=== PATIENT | female | born 1990 | race Caucasian/White ===

== ENCOUNTER 2016-08-23 02:48 | Emergency (ER) | payer OTHER ==
[~2016-08-23] VITALS: Ht 152.4 cm; Wt 81.6 kg
[~2016-08-23 02:48] MED LIST: DONNATAL TABS1 TAB PO; ENTOCORT EC3 MG PO; REMICADE100 MG; ZOFRAN4 M2 PO
--- NOTE | 2016-08-23 03:04 | ED GI/GU/ABDOMINAL COMPLAINT ---
History of Present Illness General Chief Complaint: Nausea, Vomiting, Diarrhea Stated Complaint: VOMITING ABD PAIN 35 WKS Source: patient Exam Limitations: no limitations Vital Signs & Intake/Output Vital Signs & Intake/Output Vital Signs Date Time Temp Pulse Resp B/P Pulse O2 O2 Flow FiO2 Ox Delivery Rate 08/23 0307 99.7 99 18 152/69 99 Allergies Coded Allergies: No Known Allergies (12/26/15) Reconcile Medications Budesonide (Entocort EC) 3 MG ECC 3 CAP PO DAILY COLITIS Infliximab (Remicade) (Unknown Strength) VIAL (Unknown Dose) COLITIS ( Reported) Ondansetron (Zofran Odt) 4 MG TAB.RAPDIS 1 TAB SL TID PRN nausea Ondansetron HCl (Zofran) 4 MG TABLET 1 TAB PO Q6-8P PRN NAUSEA Triage Nurses Notes Reviewed? yes ? y Is pt currently ? No Onset: Gradual Duration: hour(s): Timing: recent history Quality/Severity: cramping Location: generalized abdomen Radiation: no radiation Prior Abdominal Problems: "I have chron's disease, but this feels different." Modifying Factors: Worsens With: defecating, vomiting. Associated Symptoms: diarrhea, nausea/vomiting HPI: 25 yo woman 35 weeks gestation, presents with several hours of nausea, vomiting, diarrhea. "I wasn't feeling too great all day, but then tonight I just started vomiting over and over.... I live in [place] and I vomited three times." She notes mild diarrhea. She notes no fever, chills, dysuria, vaginal bleeding or discharge. She is otherwise well. Past History Medical History Any Pertinent Medical History? 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 No Review of Systems Review of Systems Constitutional: Reports: no symptoms. EENTM: Reports: no symptoms. Respiratory: Reports: no symptoms. Cardiovascular: Reports: no symptoms. GI: Reports: no symptoms. Genitourinary: Reports: no symptoms. Musculoskeletal: Reports: no symptoms. Skin: Reports: no symptoms. Neurological/Psychological: Reports: no symptoms. Hematologic/Endocrine: Reports: no symptoms. Immunologic/Allergic: Reports: no symptoms. All Other Systems: Reviewed and Negative Physical Exam Physical Exam General Appearance: well developed/nourished, mild distress, moderate distress Head: atraumatic, normal appearance Eyes: Bilateral: normal appearance. Ears, Nose, Throat, Mouth: hearing grossly normal Neck: normal inspection, supple, full range of motion Respiratory: normal breath sounds, chest non-tender, no respiratory distress, quiet respiration, lungs clear Cardiovascular: regular rate/rhythm Gastrointestinal: normal bowel sounds, soft, non-tender, no organomegaly, gravid uterus above umbilicus Back: normal inspection Extremities: normal range of motion Neurologic/Psych: no motor/sensory deficits, awake, alert, oriented x 3 Skin: intact, normal color, warm/dry Core Measures ACS in differential dx? No Severe Sepsis Present: No Septic Shock Present: No Progress Differential Diagnosis: viral syndrome vs other. Plan of Care: Orders Procedure Date/time Status URINALYSIS 08/23 303 Active LIPASE 08/23 303 Complete HEPATIC FUNCTION PANEL 08/23 303 Complete CBC WITHOUT DIFFERENTIAL 08/23 303 Complete BASIC METABOLIC PANEL 08/23 303 Complete AMYLASE 08/23 303 Complete Laboratory Tests 08/23/16 0315: Anion Gap 16, Estimated GFR > 60, BUN/Creatinine Ratio 20.0, Glucose 115 H, Calcium 8.9, Total Bilirubin 0.4, Direct Bilirubin 0.2, AST 14, ALT 26, Alkaline Phosphatase 85, Total Protein 7.2, Albumin 3.9, Amylase 35, Lipase 90, CBC w Diff NO MAN DIFF REQ, RBC 4.10 L, MCV 81.2, MCH 27.5, RDW 13.9, MPV 8.0, Gran % 84.6 H, Lymphocytes % 6.7 L, Monocytes % 6.2, Eosinophils % 2.4, Basophils % 0.1, Absolute Granulocytes 11.5 H, Absolute Lymphocytes 0.9 L, Absolute Monocytes 0.8 H, Absolute Eosinophils 0.3, Absolute Basophils 0, PUBS MCHC 33.9 Initial ED EKG: none Departure Departure Disposition: HOME OR SELF CARE Condition: Stable Clinical Impression Primary Impression: Abdominal pain Secondary Impressions: Diarrhea, Nausea and vomiting, Referrals: TREMAGLIO MD,JERALD V. (PCP/Family) Departure Forms: Customer Survey General Discharge Information Prescriptions: Current Visit Scripts Ondansetron (Zofran Odt) 1 TAB SL TID PRN nausea #10 TAB Ref 1 Comments 08/23/16, 3:54am... pt transferred to OB floor for further evaluation. 08/23/16, 5:13am... cbc/chemistries notable for slightly elevated wbc count... pt has been discharged to OB floor... U/A pending. Comments 08/23/16, 3:54am... pt transferred to OB floor for further evaluation.
[2016-08-23 03:07] VITALS: BP 152/69
[2016-08-23 03:27] LABS: ABSOLUTE BASOPHIL COUNT 0 /CUMM (0.0-0.2); ABSOLUTE EOSINOPHIL COUNT 0.3 /CUMM (0.0-0.7); ABSOLUTE GRANULOCYTE CT 11.5 /CUMM (1.4-6.5); ABSOLUTE LYMPH COUNT 0.9 /CUMM (1.2-3.4); ABSOLUTE MONOCYTE COUNT 0.8 /CUMM (0.10-0.60); BASOPHIL % 0.1 % (0.0-2.0); EOSINOPHIL % 2.4 % (0-5); HEMATOCRIT 33.3 % (37-47); MEAN CORPUSCULAR HGB 27.5 PG (27.0-31.0); MEAN CORPUSCULAR HGB CONC 33.9 G/DL (33.0-37.0); MEAN CORPUSCULAR VOLUME 81.2 FL (81.0-99.0); PLATELET COUNT 297 /CUMM (130-400); RBC DISTRIBUTION WIDTH 13.9 % (11.5-14.5); WHITE BLOOD CELL COUNT 13.6 /CUMM (4.8-10.8)
[2016-08-23] MEDS ORDERED: ZOFRAN ODT4 M1 SL (03:29)
[2016-08-23 03:37] LABS: GRANULOCYTE % 84.6 % (42.2-75.2)
[2016-09-23] MEDS ORDERED: ALBUTEROL0.63 MG/1 INH/SOL (11:52)
[2016-09-23] MEDS ORDERED: PROAIR HFA8.5 GM INH (11:53)
== END 2016-08-23 03:54 ==
LOC: ERH 02:48
PROVIDERS: Pediatrics
DX: O21.9 Vomiting of pregnancy, unspecified (principal); O26.93 Pregnancy related conditions, unspecified, third trimester; R19.7 Diarrhea, unspecified; R11.0 Nausea; R10.9 Unspecified abdominal pain; Z3A.35 35 weeks gestation of pregnancy; D72.829 Elevated white blood cell count, unspecified
CPT/HCPCS: 96374; J2405

== ENCOUNTER 2016-09-25 05:57 | Inpatient (IN) | payer OTHER ==
--- NOTE | 2016-09-23 14:31 | History & Physical ---
General Information and HPI MD Statement: I have seen and personally examined EDIL SORIA and documented this H&P. The patient is a 25 year old female at [39] weeks and [3] days gestation who presented with a chief complaint of [ELECTIVE REPEAT ]. Source of Information: patient Exam Limitations: no limitations History of Present Illness: 25yo, ,39 3/7wks, here for elective repeat . she denies ctxs, no vaginal bleeidng or LOF, reports +FM. care started at 10 wks, uncomplicated thus far. h/o x 1 in 2013. u/s show posterior placenta this . 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 x1 2014 Past Pregnancies Past Pregnancies: Date of Delivery: 08/18/2013 Gestational Age: 38wks Weight: 9oh00ig Type of Delivery: Anesthesia: epidural Complications: none Medical History Blood Transfusion Hx: No Neurological: NONE EENT: NONE Cardiovascular: TACHYCARDIA Respiratory: asthma Gastrointestinal: Crohn's disease Hepatic: NONE Renal: NONE Musculoskeletal: NONE Psychiatric: NONE Endocrine: NONE Blood Disorders: NONE Cancer(s): NONE 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 Home Who Do You Live With? spouse, child Primary Language: Guatemalan Smoking Status: Former Smoker ETOH Use: denies use Illicit Drug Use: denies illicit drug use Review of Systems Review of Systems Constitutional: Reports: no symptoms. EENTM: Reports: no symptoms. Cardiovascular: Reports: no symptoms. Respiratory: Reports: no symptoms. GI: Reports: no symptoms. Genitourinary: Reports: see HPI. Musculoskeletal: Reports: no symptoms. Skin: Reports: no symptoms. Neurological/Psychological: Reports: no symptoms. Hematologic/Endocrine: Reports: no symptoms. Immunologic/Allergic: Reports: no symptoms. All Other Systems: Reviewed and Negative Post Menopausal: No Exam & Diagnostic Data Obstetric Exam Wgt Gained During : 24LBS Pelvimetry: adequate Dilation (cm): 1 Effacement (%): 60 Station: -3 Membranes: intact Fluid: unknown Fundal Height (cm): 38 Multiple Gestation? No Contractions: no Infant #1 - FHR Baseline: 140 Category: 1 Estimated Weight: 7lbs Presentation: vertex Patient for Induction? No Physical Exam: VSS General: NAD Abdomen: gravid,soft, nontender Ext: DCT (-) Labs Blood Type & Rh: A positive Antibody Screen: negative Hct/Hgb & Platelets #1: 11.6/35.1%,[id number] Hct/Hgb & Platelets #2: 9.9/30.3%,[id number] Rubella: immune VDRL #1: negative VDRL #2: negative HbsAg: negative HIV #1: negative HIV #2 negative 1 Hr P Group B Strep: negative Initial Ultrasound: IUP at 10wks Anatomy Ultrasound: normal Genetic Testing: normal Assessment/Plan Assessment/Plan: 25yo, , 39 3/7wks, prior c/s, for elective repeat c/s 1. admit pt, admission labs 2. R/B/A of repeat d/w pt, she understand, all questions answered, informed consent obtained, pt desires to proceed. 3. will prepare for OR As Ranked By This Provider Problem List: 1. 2. History of delivery Core Measures/Miscellaneous Venous Thromboembolism VTE Risk Factors: / VTE Contraindications: No Contraindications VTE Prophylaxis Ordered Inpt: Early Ambulation VTE Diagnosis: No Beta Trish Is Beta Trish a Home Med? No Antibiotics Is Patient on Antibiotics? No Attending MD Review Statement Attending Statement Attending MD Statement: examined this patient, discussed with family, discussed w/nursing
[~2016-09-25] VITALS: Ht 152.4 cm; Wt 83.0 kg
[~2016-09-25 05:57] MED LIST changes: +ALBUTEROL0.63 MG/1 INH/SOL; +PROAIR HFA8.5 GM INH; +ZOFRAN ODT4 M1 SL
[2016-09-25 06:23] VITALS: BP 113/73
--- NOTE | 2016-09-25 11:41 | Operative Report ---
Operative/Inv Procedure Report Surgery Date: 09/25/16 Name of Procedure: Repeat low transverse section via Pfannenstiel Pre-Operative Diagnosis: G3 para 2001 at 39 weeks 3 days intrauterine , prior section 1 Post-Operative Diagnosis: Same Estimated Blood Loss: 500ML Surgeon/Traffic And Transport Planner: FREDA PERALTA,ALYSSA Field MD Anesthesia: SPINAL IV Fluids: 1600 mL lactated Ringer's Urine Output: 100 mL clear urine at the end of procedure Complications: None Condition: Stable Operative Indication: 25-year-old G3 para 2001, 39 weeks 3 days intrauterine , prior section 1, patient chooses to have elective repeat . Operative/Procedure Note Note: The patient was taken to the operating room where spinal anesthesia was found to be adequate. She was then prepared and draped in the usual sterile fashion in the dorsosupine position with the leftward tilt. A Pfannenstiel skin incision was then made with the scalpel and carried through to the underlying layer of the fascia with the Bovie. The fascia was incised in the midline and the incision extended laterally with the Workman scissors. The inferior aspect of this fascial incision was then grasped with the Sam clamps, elevated, and underlying rectus muscle dissected off with Workman scissors. Attention was then turned to the superior aspect of this incision which, in a similar fashion, was grasped, tented up with the Sam clamps, and the rectus muscle dissected off with Workman scissors. The rectus muscle was then in the midline, and the peritoneum identified tented up and entered bluntly. The peritoneum incision was then extended superiorly and inferiorly with good visualization of the bladder. The bladder blade was then inserted and the vesicouterine peritoneum identified, grasped with the pickups and entered sharply with the Metzenbaum scissors. The incision was then extended laterally and the bladder flap created digitally. The bladder blade was then reinserted and the lower uterine segment incised in a transverse fashion with the scalpel. The uterine incision was then extended laterally. The bladder blade was removed and infant head delivered atraumatically. The nose and mouth was suctioned with the suction bulb, and the cord clamped and cut. Infant was handed off to the waiting pediatricians. Cord blood was sent . The placenta was then removed manually, the uterus exteriorized, and cleared of all clots and debris. The uterine incision was repaired with 0 Vicryl in a running locked fashion. A second layer of the same suture was used to obtain excellent hemostasis. 2 figure of 8 suture was used at right site corner of the uterine incision to achieve excellent hemostasis. The uterus returned to the abdomen. The gutters were cleared of all clots, and the peritoneum closed with 3-0 Vicryl. The rectus muscle was reapproximated with 2-0 Vicryl. The fascia was reapproximated with 0 Vicryl in a running fashion. Skin was closed with 4-0 Monocryl subcuticularly. The patient tolerated the procedure well. Sponge, lap and needle counts were correct 2. The patient was taken to the recovery room in stable condition. Findings: Live male infant in cephalic presentation, KENNETH position, time study engineer present at delivery, Apgars 8 and 9, weight 3235 g. Normal uterus, tubes, and ovaries.
[2016-09-26 17:04] LABS: ABSOLUTE BASOPHIL COUNT 0 /CUMM (0.0-0.2); ABSOLUTE EOSINOPHIL COUNT 0.3 /CUMM (0.0-0.7); ABSOLUTE GRANULOCYTE CT 6.9 /CUMM (1.4-6.5); ABSOLUTE LYMPH COUNT 1.8 /CUMM (1.2-3.4); ABSOLUTE MONOCYTE COUNT 0.8 /CUMM (0.10-0.60); BASOPHIL % 0.4 % (0.0-2.0); EOSINOPHIL % 2.7 % (0-5); GRANULOCYTE % 70.5 % (42.2-75.2); HEMATOCRIT 25.4 % (37-47); MEAN CORPUSCULAR HGB 25.6 PG (27.0-31.0); MEAN CORPUSCULAR HGB CONC 33.5 G/DL (33.0-37.0); MEAN CORPUSCULAR VOLUME 76.6 FL (81.0-99.0); MEAN PLATELET VOLUME 9.3 FL (7.4-10.4); PLATELET COUNT 263 /CUMM (130-400); RBC DISTRIBUTION WIDTH 15.7 % (11.5-14.5); RED BLOOD CELL CT 3.31 /CUMM (4.20-5.40); WHITE BLOOD CELL COUNT 9.8 /CUMM (4.8-10.8)
--- NOTE | 2016-09-27 13:10 | PN- OBGYN ---
Surgical Brief Attending Note Brief Attending Note: no complaints. doing well. +ambulating, voiding, tolerating pain and po. + nursing. minimal lochia VSSAF FF@U, inc: c/d/i Ext: no calf tenderness , 1+ pedal edema Laboratory Tests 09/26/16 1645: CBC w Diff NO MAN DIFF REQ, RBC 3.31 L, MCV 76.6 L, MCH 25.6 L, RDW 15.7 H, MPV 9.3, Gran % 70.5, Lymphocytes % 18.7 L, Monocytes % 7.7, Eosinophils % 2.7, Basophils % 0.4, Absolute Granulocytes 6.9 H, Absolute Lymphocytes 1.8, Absolute Monocytes 0.8 H, Absolute Eosinophils 0.3, Absolute Basophils 0, PUBS MCHC 33.5 Microbiology 09/25 901 URINE ROUT: Urine Culture - CAN Cancelled: DUPLICATE 09/25 739 URINE ROUT: Urine Culture - COMP a/p POD 2. Doing well. Routine postop care. Anemia noted. will replace upon discharge.Anticipate d/c in AM
[2016-09-27] MEDS ORDERED: PERCOCET 5-3251 EACH PO (13:12)
[2016-09-27] MEDS ORDERED: IBUPROFEN800 M1 PO (13:12)
[2016-09-28] MEDS ORDERED: FEROCON CAPSUL1 EACH PO (08:29)
--- NOTE | 2016-10-03 15:17 | Discharge Summary ---
Visit Information Visit Dates Admission Date: 09/25/16 Discharge Date: 09/28/16 Hospital Course Course Attending Physician: ALYSSA BARBA MD Primary Care Physician: CORNELIA PERALTA,JERALD Malik Hospital Course: 25yo, term , she was admitted fro elective repeat on 09/25/2016 , she delivered a live male infant without complications. pt tolerated procedure well. During the hospital stay, she remained in stable condition, tolerate diet, void without difficulties, flatus(+), ambulating well. afebrile, VSS. abdomen soft, nontender, uterus firm, fundus below umbilicus, incision D/C/ I. she was discharged on 09/28/2016 Complications: none Allergies: Coded Allergies: No Known Allergies (12/26/15) Significant Procedures: repeat low transverse cesearan section Disposition Summary Disposition Principal Diagnosis: 39 wks prior Additional Diagnosis: anemia Discharge Disposition: home or self care Discharge Instructions General Discharge Information Code Status: Full Code Patient's Diet: regular Patient's Activity: as tolerated Follow-Up Instructions/Appts: f/u in offcie in 2wks and 6 wks Medications at Discharge Discharge Medications: Stop taking the following medications: Albuterol Sulfate (Albuterol Sulfate) 0.63 MG/3 ML VIAL.NEB Inhale Solution 4 TIMES A DAY as needed for ASTHMA Continue taking these medications: Infliximab (Remicade) (Unknown Strength) VIAL Unknown Dose Albuterol Sulfate (Proair Hfa) 90 MCG HFA.AER.AD 2 Puff Inhale through mouth EVERY 4-6 HOURS NEEDED as needed for ASTHMA Start taking the following new medications: Ibuprofen (Ibuprofen) 800 MG TABLET 800 Milligram ORAL EVERY SIX HOURS NEEDED as needed for UTERINE CRAMPING Qty = 30 No Refills Comments: Last Taken:09/28/16 Time:0640 Oxycodone HCl/Acetaminophen (Percocet 5-325 MG Tablet) 5 MG-325 MG TABLET 1 Tablet ORAL EVERY 4 HOURS NEEDED as needed for PAIN SCALE 4-6 (MODERATE ) Qty = 30 No Refills Comments: Last Taken:09/28/16 Time:0640 Fe Fumarate/Vit C/B12-If/FA (Ferocon Capsule) 110 MG IRON-75 MG-15 MCG-0.5 MG CAPSULE 1 Tablet ORAL Every Day Qty = 90 Refills = 3 Copies To: ALYSSA BARBA MD Attending MD Review Statement Documenting Attending: ALYSSA BARBA MD
== END 2016-09-28 10:15 | DRG 766 ==
LOC: GNO 05:57
PROVIDERS: ADMIT Obstetrics & Gynecology
PROC: 10D00Z1 Extraction of Products of Conception, Low, Open Approach (ICD-10-PCS; principal; 2016-09-25)
DX: O34.211 Maternal care for low transverse scar from previous cesarean delivery (principal); N85.8 Other specified noninflammatory disorders of uterus; Z3A.39 39 weeks gestation of pregnancy; Z37.0 Single live birth
CPT/HCPCS: GNOS; 87086; J0690; J1885; J2405; J2765; J7120; Q2036